=== PATIENT | female | born 2000 | race Caucasian/White ===

== ENCOUNTER 2018-03-19 02:14 | Emergency (ER) | payer OTHER ==
--- NOTE | 2018-03-19 02:33 | ED ---
Substance Abuse/Use - HPI Summary HPI Summary: This is scribe Quinn Merchant documenting for attending Dr. Jj Reyna MD. This patient is a 17 year old F BIBA with a chief complaint of EtOH abuse since earlier tonight. Patient reports that her friends called EMS for her because they think she is bad. The pt thought that the doctor was a police service technician and said, I am sorry officer. Pt reports she was smoking marijuana earlier tonight. [employer] college student. I, Dr. Reyna, personally performed the services described in this documentation as scribed in my presence and it is both accurate and complete. - History Of Current Complaint Chief Complaint: EDOverdose Stated Complaint: 2208 Time Seen by Provider: 03/19/18 02:21 Hx Obtained From: Patient Onset/Duration of Drug/ETOH Abuse: Hours Ingestion History: Type/Name Of Drug - marijuana, alcohol Severity Initially: Moderate Severity Currently: Mild Character: Stuporous - Allergies/Home Medications Allergies/Adverse Reactions: Allergies Allergy/AdvReac Type Severity Reaction Status Date / Time No Known Allergies Allergy Verified 03/19/18 04:11 Home Medications: Home Medications Unobtainable 03/19/18 [History Confirmed 03/19/18] PMH/Surg Hx/FS Hx/Imm Hx History: Denies: Hx Dialysis Sensory History: Denies: Hx Deafness Infectious Disease History: No Infectious Disease History: Denies: Traveled Outside the [place] in Last 30 Days - Family History Known Family History: Positive: Unknown - unable to obtain - Social History Alcohol Use: Occasionally Alcohol Amount: utd Substance Use Type: Reports: Marijuana Smoking Status (MU): Never Smoked Tobacco Review of Systems Negative: Fever Negative: Cough Negative: Edema All Other Systems Reviewed And Are Negative: Yes Physical Exam - Summary Physical Exam Summary: Appearance: Well-appearing, Well-nourished. Pt is visibly intoxicated. Skin: Warm, dry, no obvious rash Eyes: sclera anicteric, no conjunctival pallor ENT: mucous membranes moist Neck: deferred Respiratory: No signs of respiratory distress Cardiovascular: Appears well perfused, pulses are nml Abdomen: deferred Musculoskeletal: Moving all 4 extremities without obvious discomfort Neurological: Awake and alert, mentation is normal, speech is fluent and appropriate Psychiatric: affect is normal, does not appear anxious or depressed Triage Information Reviewed: Yes Vital Signs On Initial Exam: Initial Vitals Temp Pulse Resp BP Pulse Ox 98.6 F 76 14 121/75 98 03/19/18 02:20 03/19/18 02:20 03/19/18 02:20 03/19/18 02:20 03/19/18 02:20 Vital Signs Reviewed: Yes Diagnostics - Vital Signs Vital Signs Temp Pulse Resp BP Pulse Ox 03/19/18 02:20 98.6 F 76 14 121/75 98 - Laboratory Lab Statement: Any lab studies that have been ordered have been reviewed, and results considered in the medical decision making process. Course/Dx - Diagnoses Provider Diagnoses: Alcohol intoxication Discharge - Sign-Out/Discharge Documenting (check all that apply): Patient Departure - discharge - Discharge Plan Condition: Improved Disposition: HOME Patient Education Materials: Alcohol Intoxication (ED) Referrals: [facility]: Psych Services [Outside] - Attestation Statements Document Initiated by Scribe: Yes Documenting Scribe: Quinn Merchant Provider For Whom Scribe is Documenting (Include Credential): Jj Reyna MD Scribe Attestation: Quinn Lawson, scribed for Jj Reyna MD on 03/19/18 at 0413.
[2018-03-19 04:07] VITALS: BP 106/67
== END 2018-03-19 04:18 | disposition home or self-care (01) ==
LOC: ED 02:14
DX: F10.129 Alcohol abuse with intoxication, unspecified (principal)
CPT/HCPCS: 99283